=== PATIENT | female | born 1970 | race Caucasian/White ===

== ENCOUNTER 2018-07-21 10:42 | Outpatient (CLI) | payer OTHER ==
--- NOTE | 2018-07-21 12:05 | RAD ---
TWO VIEWS LEFT CALCANEUS: Date: 07-21-18 Comparison: None. History: Heel pain. FINDINGS: There is enthesophyte formation at the insertion of the Achilles tendon in the origin of the plantar aponeurosis. No acute fracture is noted. IMPRESSION: Calcaneal enthesophytosis. POS: [facility]
--- NOTE | 2018-07-21 12:10 | RAD ---
4 VIEWS LEFT GREAT TOE: Date: 07/21/18 COMPARISON: None. HISTORY: Pain. FINDINGS: There is prominent degenerative change involving the first metatarsophalangeal joint with joint space narrowing, subchondral sclerosis, and osteophyte formation. There is mild degenerative change of the first interphalangeal joint. No displaced fracture or evidence of dislocation seen. IMPRESSION: Degenerative joint disease. POS: [facility]
== END 2018-07-21 10:43 | disposition home or self-care (01) ==
LOC: SCSRAD 10:42
PROVIDERS: ATTEND Chiropractor
DX: M77.42 Metatarsalgia, left foot (principal); M79.672 Pain in left foot; M77.32 Calcaneal spur, left foot; M19.072 Primary osteoarthritis, left ankle and foot